=== PATIENT | male | born 1940 | race Caucasian/White ===

== ENCOUNTER 2017-01-25 12:34 | Emergency (ER) | payer OTHER, MEDICARE ==
[~2017-01-25] VITALS: Ht 180.3 cm; Wt 83.9 kg
--- NOTE | 2017-01-25 12:58 | ED GENERAL ADULT ---
History of Present Illness General Chief Complaint: Altered Mental Status Stated Complaint: I GOT NERVOUS AND FELT MY HEAD IN A FOG Source: patient, family, EMS Exam Limitations: no limitations Vital Signs & Intake/Output Vital Signs & Intake/Output Vital Signs Date Time Temp Pulse Resp B/P B/P Pulse O2 O2 Flow FiO2 Mean Ox Delivery Rate 01/25 1539 96.4 72 18 119/79 95 Room Air 01/25 1241 96.8 74 18 140/86 96 Room Air Allergies Coded Allergies: No Known Allergies (01/25/17) Reconcile Medications Duloxetine HCl 60 MG CAPSULE.DR 1 CAP PO BID DEPRESSION (Reported) Ergocalciferol (Vitamin D2) (Vitamin D2) 50,000 UNIT CAPSULE 1 CAP PO QMON VITAMIN SUPPORT (Reported) Lindon Carbonate (Lindon Carbonate ER) 450 MG TABLET.ER 1 TAB PO QPM DEPRESSION (Reported) Mirtazapine 15 MG TABLET 1 TAB PO QPM DEPRESSION (Reported) Pantoprazole Sodium 20 MG TABLET.DR 1 TAB PO DAILY GI (Reported) Tamsulosin HCl 0.4 MG CAP.ER.24H 1 CAP PO DAILY PROSTATE (Reported) Trazodone HCl 50 MG TABLET 1 TAB PO QPM SLEEP (Reported) Triage Note: PT BIBA. PT WAS DRIVING TO A AND FELT CONFUSED, ANXIOUS, AND 'IN A FOG'. PT IS ALERT, STATES HE FEELS SLIGHTLY DIZZY Triage Nurses Notes Reviewed? yes HPI: 76-year-old male with a history of anxiety and depression presenting status post -episode of headache, "feeling like he was in a fog," and tunnel vision that occurred about an hour prior to arrival while he was driving to a . Patient states that he has a long history of severe anxiety that is always exacerbated by funerals. Eventually pulled off to the side of the road, reports that patient became altered like he was staring off in a trance and wouldn't respond to her for about 5 minutes. Pt states this feels like his usual anxiety symptoms. Is currently managed on an anxiolytic that he is unable to recall the name of. States that he tried a pill from a friend that may have been Xanax or Ativan, immediately relieved his symptoms. Denies any CP, SOB, light headedness, dizziness, nausea, vomiting, diaphoresis during the episode. Per there was no evidence of facial droop, dysarthria, abnormal coordination. (EMBER CORADO,VIVIAN) Past History Travel History Traveled to [place] past 21 day No Medical History Any Pertinent Medical History? see below for history Neurological: NONE EENT: NONE Cardiovascular: NONE Respiratory: NONE Gastrointestinal: NONE Hepatic: NONE Renal: NONE Musculoskeletal: NONE Psychiatric: depression Endocrine: NONE Blood Disorders: NONE Cancer(s): NONE PRACTICING UROLOGIST/Reproductive: NONE Influenza Vaccine: 10/07/16 Surgical History Surgical History: non-contributory Psychosocial History What is your primary language Ukrainian Tobacco Use: Never used ETOH Use: denies use Illicit Drug Use: denies illicit drug use Family History Hx Contributory? No (VIVIAN PA PA-C) Review of Systems Review of Systems Constitutional: Denies: chills, diaphoresis, fever, malaise, weakness. Respiratory: Denies: cough, short of breath, sputum production, wheezing. Cardiovascular: Denies: chest pain, palpitations, syncope. GI: Denies: abdominal pain, diarrhea, nausea, vomiting. Genitourinary: Denies: dysuria. Musculoskeletal: Denies: joint pain, muscle pain. Skin: Denies: rash. Neurological/Psychological: Reports: anxiety. Denies: ataxia, confusion, dementia, numbness, paresthesia, tingling, tremors, weakness, other (light headedness/dizziness). (EMBER CORADO,VIVIAN) Physical Exam Physical Exam General Appearance: well developed/nourished, no apparent distress, alert, awake , comfortable Head: atraumatic Ears, Nose, Throat: normal ENT inspection Neck: normal inspection, supple Respiratory: normal breath sounds, lungs clear Cardiovascular: regular rate/rhythm Gastrointestinal: normal bowel sounds, soft, non-tender Neurologic/Psych: no motor/sensory deficits, awake, alert, oriented x 3, normal gait, biomedical engineering aide II-XII nml as tested, neurologic exam is grossly normal, patient alert and oriented 4, cranial nerves II through XII intact, sensation normal, motor strength 5 out of 5 in all extremities, cerebellar function intact with normal finger to nose exam and tendon walking, patient able to ambulate with a steady gait, reflexes 2+. Core Measures ACS in differential dx? No CVA/TIA Diagnosis: No Severe Sepsis Present: No Septic Shock Present: No (EMBER CORADO,VIVIAN) Progress Differential Diagnoses I considered the following diagnoses in my evaluation of the patient: [Anxiety attack versus TIA versus SAH] Plan of Care: Orders Procedure Date/time Status URINALYSIS 01/25 132 Active COMPREHENSIVE METABOLIC PANEL 01/25 1327 Complete CBC WITHOUT DIFFERENTIAL 01/25 132 Complete EKG 01/25 1305 Active Laboratory Tests 01/25/17 1345: Anion Gap 7, Estimated GFR > 60, BUN/Creatinine Ratio 21.1, Glucose 87, Calcium 9.3, Total Bilirubin 0.7, AST 18, ALT 31, Alkaline Phosphatase 77, Total Protein 6.7, Albumin 3.8, Globulin 2.9, Albumin/Globulin Ratio 1.3, CBC w Diff NO MAN DIFF REQ, RBC 4.56 L, MCV 87.1, MCH 29.2, RDW 14.0, MPV 8.3, Gran % 74.1, Lymphocytes % 17.9 L, Monocytes % 5.4, Eosinophils % 2.0, Basophils % 0.6, Absolute Granulocytes 4.6, Absolute Lymphocytes 1.1 L, Absolute Monocytes 0.3, Absolute Eosinophils 0.1, Absolute Basophils 0, PUBS MCHC 33.5 Head scan unremarkable, labs all within normal limits. Examination history consistent with anxiety attack triggered by stress from attending . Instructed to follow up with his psychiatrist at [facility] in 2-3 days (VIVIAN PA PA-C) Initial ED EKG: NSR (VIVIAN PA PA-C) Departure Departure Disposition: HOME OR SELF CARE Condition: Stable Clinical Impression Primary Impression: Anxiety attack Referrals: SHANTANU GLEASON,KHOI Godwin Additional Instructions: Follow-up with your psychiatrist for reevaluation within the next 2-3 days. Return to the ED for any new or worsening symptoms. Departure Forms: Customer Survey General Discharge Information (VIVIAN PA PA-C) PA/HOSPITAL MEDICAL ASSISTANT Co-Sign Statement Statement: ED Attending supervision documentation- [X] I saw and evaluated the patient. I have also reviewed all the pertinent lab results and diagnostic results. I agree with the findings and the plan of care as documented in the PA's/HOSPITAL MEDICAL ASSISTANT's documentation. [X] I have reviewed the ED Record and agree with the PA's/HOSPITAL MEDICAL ASSISTANT's documentation. [] Additions or exceptions (if any) to the PAs/HOSPITAL MEDICAL ASSISTANT's note and plan are summarized below: [] (FABI GLEASON,FER) Critical Care Note Critical Care Note Critical Care Time: non-applicable (EMBER CORADO,VIVIAN)
[2017-01-25 14:06] LABS: ABSOLUTE BASOPHIL COUNT 0 /CUMM (0.0-0.2); ABSOLUTE EOSINOPHIL COUNT 0.1 /CUMM (0.0-0.7); ABSOLUTE GRANULOCYTE CT 4.6 /CUMM (1.4-6.5); ABSOLUTE LYMPH COUNT 1.1 /CUMM (1.2-3.4); ABSOLUTE MONOCYTE COUNT 0.3 /CUMM (0.10-0.60); BASOPHIL % 0.6 % (0.0-2.0); GRANULOCYTE % 74.1 % (42.2-75.2); HEMATOCRIT 39.7 % (42-52); MEAN CORPUSCULAR HGB 29.2 PG (27.0-31.0); MEAN CORPUSCULAR HGB CONC 33.5 G/DL (33.0-37.0); MEAN CORPUSCULAR VOLUME 87.1 FL (80.0-94.0); MEAN PLATELET VOLUME 8.3 FL (7.4-10.4); PLATELET COUNT 218 /CUMM (130-400); RED BLOOD CELL CT 4.56 /CUMM (4.70-6.10); WHITE BLOOD CELL COUNT 6.3 /CUMM (4.8-10.8)
[2017-01-25] MEDS ORDERED: TAMSULOSIN HCL0.4 M1 PO (14:33)
[2017-01-25] MEDS ORDERED: PANTOPRAZOLE SO20 M1 PO (14:34)
[2017-01-25] MEDS ORDERED: MIRTAZAPINE15 M2 PO (14:34)
[2017-01-25] MEDS ORDERED: DULOXETINE HCL60 MG PO (14:34)
[2017-01-25] MEDS ORDERED: LITHIUM CARBON450 M1 PO (14:34)
[2017-01-25] MEDS ORDERED: VITAMIN D250000 UNIT PO (14:35)
[2017-01-25] MEDS ORDERED: TRAZODONE HCL50 M1 PO (14:35)
--- NOTE | 2017-01-25 14:39 | CT SCAN REPORT ---
EXAMINATION: CT HEAD WITHOUT CONTRAST CLINICAL INFORMATION: Aortic with 5 minutes of altered mental status. COMPARISON: None TECHNIQUE: Contiguous axial imaging was performed from the skull base to vertex without intravenous administration of contrast. DLP: 695.31 mGy-cm FINDINGS: There is no evidence of acute intracranial hemorrhage or territorial infarction. No abnormal mass effect or midline shift is seen. [place]arez to white matter differentiation is well preserved. No extra-axial fluid collections are identified. The ventricles are normal in size. There is no abnormal attenuation within the brain parenchyma. The osseous structures and soft tissues are normal. The mastoid air cells and visualized portions of the paranasal sinuses are well aerated. IMPRESSION: No acute intracranial pathology.
[2017-01-25 15:39] VITALS: BP 119/79
== END 2017-01-25 15:45 ==
LOC: ERH 12:34
PROVIDERS: Physician Assistant
DX: F41.9 Anxiety disorder, unspecified (principal)
CPT/HCPCS: 93005; 93010